=== PATIENT | female | born 1965 | race African-American/Black ===

== ENCOUNTER 2018-02-07 17:59 | Inpatient (IN) | payer BC ==
[2018-02-07 18:24] LABS: ADD MAN DIFF? NO
[2018-02-07 18:26] LABS: BASO # 0.1 x10^3/uL (0.0-0.2); BASO % 1 % (0-3); EOS # 0.2 x10^3/uL (0.0-0.7); EOS % 3 % (0-3); HEMATOCRIT 39.2 % (36.0-47.0); LYMPH # 4.3 x10^3/uL (1.0-4.8); LYMPH % 47 % (24-48); MEAN CORPUSCULAR HEMOGLOBIN 30 pg (25-35); MEAN CORPUSCULAR HGB CONC 33 g/dL (31-37); MEAN CORPUSCULAR VOLUME 89 fL (79-100); MONO # 0.7 x10^3/uL (0.0-1.1); MONO % 8 % (0-9); NEUT # 3.9 x10^3uL (1.8-7.7); NEUT % 43 % (31-73); PLATELET COUNT 205 x10^3/uL (140-400); RED BLOOD COUNT 4.39 x10^6/uL (3.50-5.40); RED CELL DISTRIBUTION WIDTH 13.1 % (11.5-14.5); WHITE BLOOD COUNT 9.3 x10^3/uL (4.0-11.0)
[2018-02-07 18:39] LABS: ANION GAP 11 (6-14); BLOOD UREA NITROGEN 12 mg/dL (7-20); CALCIUM 9.2 mg/dL (8.5-10.1); CARBON DIOXIDE 25 mmol/L (21-32); CHLORIDE 105 mmol/L (98-107); CREATININE 0.7 mg/dL (0.6-1.0); GFR 105.5; GLUCOSE 90 mg/dL (70-99); INR 0.9 (0.8-1.1); POTASSIUM 4.1 mmol/L (3.5-5.1); PROTHROMBIN TIME PATIENT 11.9 SEC (11.7-14.0); SODIUM 141 mmol/L (136-145)
[2018-02-07 18:40] LABS: PARTIAL THROMBOPLASTIN TIME 33 SEC (24-38)
[2018-02-07 18:44] LABS: ALBUMIN 3.6 g/dL (3.4-5.0); ALK PHOS 108 U/L (46-116); ALT (SGPT) 18 U/L (14-59); AST (SGOT) 16 U/L (15-37); DIRECT BILIRUBIN < 0.1 mg/dL (0.0-0.2); LIPASE 126 U/L (73-393); TOTAL BILIRUBIN 0.2 mg/dL (0.2-1.0); TOTAL PROTEIN 7.6 g/dL (6.4-8.2)
[2018-02-07 18:50] LABS: NT-PRO BNP 40 pg/mL (0-124)
[2018-02-07 18:51] LABS: TROPONINI < 0.017 ng/mL (0.000-0.055)
[2018-02-07 19:27] LABS: D-DIMER 0.45 ug/mlFEU (0.00-0.50)
[2018-02-07] MEDS: IPRATRPIUM/ALBUTEROL 0.5/2.5MG 3 ML NEBU. NEB (19:34)
[2018-02-07 21:05] LABS: TROPONINI < 0.017 ng/mL (0.000-0.055)
[2018-02-07] MEDS ORDERED: ONDANSETRON PF 4 MG/2 ML VIAL. IV (22:30)
[2018-02-07] MEDS ORDERED: MORPHINE SULFATE 4 MG/ML DISP.SYRIN. IV (22:30)
[2018-02-07] MEDS: IV NORMAL SALINE 1000ML BAG 1,000 ML IV (22:50)
[2018-02-08 01:26] LABS: ADD MAN DIFF? NO
[2018-02-08 01:43] LABS: ANION GAP 8 (6-14); BLOOD UREA NITROGEN 9 mg/dL (7-20); CALCIUM 8.4 mg/dL (8.5-10.1); CARBON DIOXIDE 27 mmol/L (21-32); CHLORIDE 108 mmol/L (98-107); CREATININE 0.8 mg/dL (0.6-1.0); GFR 90.4; GLUCOSE 163 mg/dL (70-99); POTASSIUM 3.5 mmol/L (3.5-5.1); SODIUM 143 mmol/L (136-145)
[2018-02-08 01:44] LABS: TROPONINI < 0.017 ng/mL (0.000-0.055)
[2018-02-08] MEDS: IV NORMAL SALINE 1000ML BAG 1,000 ML IV ×2 (02:35→16:27)
[2018-02-08 03:53] LABS: BASO % 0 % (0-3); EOS # 0.2 x10^3/uL (0.0-0.7); EOS % 2 % (0-3); HEMATOCRIT 35.3 % (36.0-47.0); HEMOGLOBIN 11.6 g/dL (12.0-15.5); LYMPH # 3.2 x10^3/uL (1.0-4.8); LYMPH % 42 % (24-48); MEAN CORPUSCULAR HEMOGLOBIN 30 pg (25-35); MEAN CORPUSCULAR HGB CONC 33 g/dL (31-37); MEAN CORPUSCULAR VOLUME 91 fL (79-100); MONO # 0.6 x10^3/uL (0.0-1.1); MONO % 7 % (0-9); NEUT # 3.7 x10^3uL (1.8-7.7); NEUT % 49 % (31-73); PLATELET COUNT 172 x10^3/uL (140-400); RED BLOOD COUNT 3.89 x10^6/uL (3.50-5.40); RED CELL DISTRIBUTION WIDTH 13.3 % (11.5-14.5); WHITE BLOOD COUNT 7.6 x10^3/uL (4.0-11.0)
[2018-02-08] MEDS ORDERED: cefTRIAXone SODIUM 2 GM in IV DEXTROSE 5% 100 ML IV (14:45)
[2018-02-08] MEDS ORDERED: IOHEXOL 300 MG/ML 100ML VIAL. IV (15:00)
[2018-02-08] MEDS ORDERED: CONTRAST GIVEN MC (15:00)
[2018-02-08] MEDS: IOHEXOL 300 MG/ML 100ML VIAL. IV (15:23)
[2018-02-08] MEDS: cefTRIAXone IV Push 2 GM VIAL. IVP (16:26)
[2018-02-08] MEDS: AZITHROMYCIN 500 MG in IV NORMAL SALINE 250ML 250 ML IV (16:26)
[2018-02-08] MEDS: ENOXAPARIN 40 MG/0.4 ML SYRINGE. SQ (16:29)
[2018-02-08 19:59] LABS: THYROID STIM HORMONE (TSH) 1.722 uIU/mL (0.358-3.74)
[2018-02-09] MEDS ORDERED: AZITHROMYCIN 500 MG in IV DEXTROSE 5 %-0.2 % NACL 250 ML IV (15:00)
[2018-02-09] MEDS ORDERED: LACTOBACILLUS RHAMNOSUS GG 1 CAPSULE. PO (21:00)
== END 2018-02-09 14:26 | disposition home or self-care (01) | DRG 192 ==
LOC: ER 17:59 → 5 NORTH 22:25
DX: J44.1 Chronic obstructive pulmonary disease with (acute) exacerbation (principal); M48.02 Spinal stenosis, cervical region; R07.89 Other chest pain; J44.0 Chronic obstructive pulmonary disease with (acute) lower respiratory infection; F17.210 Nicotine dependence, cigarettes, uncomplicated; J20.9 Acute bronchitis, unspecified; K21.9 Gastro-esophageal reflux disease without esophagitis; Z53.20 Procedure and treatment not carried out because of patient's decision for unspecified reasons; K76.9 Liver disease, unspecified; Z82.49 Family history of ischemic heart disease and other diseases of the circulatory system
CPT/HCPCS: 36415; 71045; 71260; 80048; 80076; 83690; 83880; 84443; 84484; 85025; 85379; 85610; 85730; 93005; 94640; 99285-25; J0456; J0696; J1650; J7030; J7050; J7620; Q9967

== ENCOUNTER 2019-01-28 18:11 | Emergency (ER) | payer BC ==
[~2019-01-28] VITALS: Ht 165.1 cm; Wt 73.9 kg
[~2019-01-28 18:11] MED LIST: ALBU2.5V8 INH; AZIT250T PO; AZIT250T6 PO; TRAM50TA PO
[2019-01-28 18:22] VITALS: BP 130/66
--- NOTE | 2019-01-28 19:06 | PHYS DOC ---
Past Medical History Past Medical History: Other Additional Past Medical Histor: "SPINAL CORD INJURY" Past Surgical History: Tonsillectomy, Other Additional Past Surgical Histo: partial thyroidectomy Additional Information: 1 PACK/DAY Alcohol Use: None Drug Use: None Adult General Chief Complaint Chief Complaint: FOOT INJURY PAIN HPI HPI Patient is a 53 year old female who presents with sitting on the floor for an extended period. Patient states when she went to stand up BEFORE she began having left dorsal foot and medial and lateral ankle pain. Patient states it is hard for her to walk on the foot. Patient is rating her pain a 10 out of 10. Patient states she took 2 Advil before coming to the ED. Review of Systems Review of Systems Constitutional: Denies fever or chills [] Eyes: Denies change in visual acuity, redness, or eye pain [] HENT: Denies nasal congestion or sore throat [] Respiratory: Denies cough or shortness of breath [] Cardiovascular: No additional information not addressed in HPI [] GI: Denies abdominal pain, nausea, vomiting, bloody stools or diarrhea [] : Denies dysuria or hematuria [] Musculoskeletal: Denies back pain. left ankle and foot joint pain [] Integument: Denies rash or skin lesions [] Neurologic: Denies headache, focal weakness or sensory changes [] All other systems were reviewed and found to be within normal limits, except as documented in this note. Current Medications Current Medications Current Medications Medications (Trade) Dose Ordered Sig/Juany Start Time Stop Time Status Last Admin Dose Admin Acetaminophen (Tylenol) 1,000 mg 1X ONCE 01/28/19 19:45 01/28/19 19:46 DC 01/28/19 19:09 1,000 MG Acetaminophen/ Hydrocodone Bitart (Lortab 5/325) 1 tab 1X ONCE 01/28/19 19:30 01/28/19 19:31 DC Allergies Allergies Allergies Coded Allergies Type Severity Reaction Last Updated Verified No Known Drug Allergies 04/09/15 No Physical Exam Physical Exam Constitutional: Well developed, well nourished, no acute distress, non-toxic appearance. [] HENT: Normocephalic, atraumatic, bilateral external ears normal, oropharynx moist, no oral exudates, nose normal. [] Eyes: PERRLA, EOMI, conjunctiva normal, no discharge. [] Neck: Normal range of motion, no tenderness, supple, no stridor. [] Cardiovascular:Heart rate regular rhythm, no murmur [] Lungs & Thorax: Bilateral breath sounds clear to auscultation [] Abdomen: Bowel sounds normal, soft, no tenderness, no masses, no pulsatile masses. [] Skin: Warm, dry, no erythema, no rash. [] Back: No tenderness, no CVA tenderness. [] Extremities: medial and lateral ankle tenderness, no cyanosis, no clubbing, ROM intact, no edema. [] Neurologic: Alert and oriented X 3, normal motor function, normal sensory function, no focal deficits noted. [] Psychologic: Affect normal, judgement normal, mood normal. [] Current Patient Data Vital Signs Vital Signs Date Time Temp Pulse Resp B/P (MAP) Pulse Ox O2 Delivery O2 Flow Rate FiO2 01/28/19 18:22 98.0 62 18 130/66 (87) 97 Room Air 98.0 EKG EKG [] Radiology/Procedures Radiology/Procedures [] Impressions: [facility] [address] [place], [place] [id number] IMAGING REPORT Signed PATIENT: RUTHY MCKEON ACCOUNT: [id number] : 1965 LOCATION: ER AGE: 53 SEX: F EXAM STATUS: PRE ER ORD. PHYSICIAN: MARICRUZ WALLER APRN REASON: PAIN PROCEDURE: FOOT LEFT 3V 3 views left ankle AP lateral oblique 3 views left foot AP lateral oblique HISTORY: Pain after standing from seated position on floor 3 views left ankle: The visualized osseous structures appear normal. IMPRESSION: Negative examination. End impression 3 views left foot: The visualized osseous structures appear normal. IMPRESSION: No acute findings. Electronically signed by: Varsha Beal III, MD (01/28/2019 7:38 PM) [facility] DICTATED and SIGNED BY: VARSHA BEAL III, MD DATE: 01/28/19 193 Course & Med Decision Making Course & Med Decision Making Patient is a 53 year old female who presents with sitting on the floor for an extended period. Patient states when she went to stand up she began having left dorsal foot and medial and lateral ankle pain. Patient states it is hard for her to walk on the foot. Patient is rating her pain a 10 out of 10. Patient states she took 2 Advil before coming to the ED. Patient has limited range of motion to her left ankle and left toes due to pain only. Tenderness to medial and lateral ankle. When I was testing the ligament the ankle and her toes patient was tensing up and pushing against me. There is no laxity of the toes or any ligamentous. Pedal pulses present. There is no swelling, bruising or deformity to the extremity. Refill less than 3 seconds. Patient refusing [place]. Patient is given Tylenol since she took 2 Advil before coming. X-ray shows no acute findings. Patient likely has strained her ankle or foot by sitting on the floor for long period time. Patient to follow-up with her primary care provider patient should continue taking Advil or ibuprofen and use ice. Also given her a Ti bandage. Dragon Disclaimer Dragon Disclaimer This electronic medical record was generated, in whole or in part, using a voice recognition dictation system. Departure Departure Impression: Primary Impression: Ankle pain Additional Impression: Foot pain Disposition: 01 HOME, SELF-CARE Condition: STABLE Referrals: RAE PAYTON (PCP) Patient Instructions: Ankle Pain, Strain-SportsMed Additional Instructions: Follow-up with her primary care provider if needed. Continue using Advil or ibuprofen for your pain. Use ice to help with any swelling and pain. Problem Qualifiers Primary Impression: Ankle pain Chronicity: acute Laterality: left Qualified Codes: M25.572 - Pain in left ankle and joints of left foot Additional Impression: Foot pain Laterality: left Qualified Codes: M79.672 - Pain in left foot MARICRUZ WALLER APRN Jan 28, 2019 19:06
[2019-01-28] MEDS ORDERED: HYDROcodone/APAP 5/325MG 1 TAB TABLET PO ONE (19:30)
--- NOTE | 2019-01-28 19:41 | RAD ---
3 views left ankle AP lateral oblique 3 views left foot AP lateral oblique HISTORY: Pain after standing from seated position on floor 3 views left ankle: The visualized osseous structures appear normal. IMPRESSION: Negative examination. End impression 3 views left foot: The visualized osseous structures appear normal. IMPRESSION: No acute findings. Electronically signed by: Ed Mendoza III, MD (01/28/2019 7:38 PM) [facility]
[2019-01-28] MEDS ORDERED: ACETAMINOPHEN 500 MG TABLET PO ONE (19:45)
== END 2019-01-28 19:56 | disposition home or self-care (01) ==
LOC: ER 18:11
DX: M25.572 Pain in left ankle and joints of left foot (principal); M79.672 Pain in left foot; F17.200 Nicotine dependence, unspecified, uncomplicated; Z90.89 Acquired absence of other organs; E89.0 Postprocedural hypothyroidism
CPT/HCPCS: 73610; 73630; 99283